=== PATIENT | female | born 1995 | race Caucasian/White ===

== ENCOUNTER 2020-12-21 10:17 | Emergency (ER) | payer OTHER ==
[~2020-12-21] VITALS: Ht 157.5 cm; Wt 56.0 kg
[~2020-12-21 10:17] MED LIST: DOCU-131 PO; IBUP-1222 PO; PREN1TAB60 PO; RANI-467 PO
[2020-12-21] MEDS ORDERED: ONDANSETRON 2MG/ML, 2ML IVPush ONE (11:00)
[2020-12-21] MEDS ORDERED: PLEASE ENTER HEIGHT AND WEIGHT MC SCH (11:00)
[2020-12-21] MEDS ORDERED: SODIUM CHLORIDE FLUSH 10ML SYR IVF ONE (11:00)
[2020-12-21] MEDS ORDERED: SODIUM CHLORIDE 0.9% 1,000ML IVBOLUS ONE (11:00)
[2020-12-21] MEDS ORDERED: ONDANSETRON 2MG/ML, 2ML ONE (11:09)
[2020-12-21 11:13] LABS: BASOPHILS % (AUTO) 1 % (0-1); EOSINOPHILS % (AUTO) 1 % (1-7); LYMPHOCYTES % (AUTO) 24 % (22-44); MEAN CORPUSCULAR HEMOGLOBIN 32.1 pg (27.0-34.8); MEAN CORPUSCULAR HGB CONC 35.3 g/dL (32.4-35.8); MEAN PLATELET VOLUME 8.1 fL (7.4-10.4); MONOCYTES % (AUTO) 7 % (2-9); NEUTROPHILS % (AUTO) 68 % (42-75); PLATELET COUNT 314 x10^3/uL (130-400); RED BLOOD COUNT 4.27 x10^6/uL (3.82-5.3); RED CELL DISTRIBUTION WIDTH 12.4 % (9.6-15.2)
[2020-12-21 11:22] LABS: MD NO
[2020-12-21 11:24] LABS: ALBUMIN 3.5 g/dL (3.4-5.0); ANION GAP 6 mmol/L (5-15); CALCIUM 9.1 mg/dL (8.5-10.1); CHLORIDE 107 mmol/L (98-107)
--- NOTE | 2020-12-21 11:26 | NUR ---
PT C/O N/V INTERMITTENTLY FOR DURATION OF , 11 WEEKS GESTATION. PT DENIES VAG BLEEDING/CRAMPING. PT STATES SHE HAS BEEN UNABLE TO TOLERATE PO FOR LAST 24 HRS. PT DENIES PAIN. PT A&O, RESPS EVEN AND UNLABORED, BP AND SPO2 MONITORS IN PLACE. CALL LIGHT IN REACH. IVF INFUSING. UA SENT TO LAB.
[2020-12-21 11:28] LABS: ALANINE AMINOTRANSFERASE 17 U/L (12-78); ALKALINE PHOSPHATASE 54 U/L (45-117); BILIRUBIN,TOTAL 0.4 mg/dL (0.2-1.0); CREATININE 0.59 mg/dL (0.55-1.02); TOTAL PROTEIN 7.5 g/dL (6.4-8.2)
[2020-12-21 11:57] LABS: MICROSCOPIC INDICATED
--- NOTE | 2020-12-21 13:13 | NUR ---
NS infused. pt up to bathroom to void, tolerating POs with no n/v. DAVID Mariee notified.
--- NOTE | 2020-12-21 13:51 | NUR ---
report given to RYAN Membreno, pt to be discharged. pt a&o, resps even and unlabored, simba.
--- NOTE | 2020-12-21 13:53 | NUR ---
PIV removed with tip intact.
[2020-12-21 13:56] VITALS: BP 117/69
== END 2020-12-21 13:58 | disposition home or self-care (01) ==
LOC: ED 11:13
DX: O21.0 Mild hyperemesis gravidarum (principal); N39.0 Urinary tract infection, site not specified; Z3A.11 11 weeks gestation of pregnancy
CPT/HCPCS: 36415; 80053; 81001; 85025; 87086; 96361; 96374; 99283; J2405; J7030

== ENCOUNTER 2021-04-03 14:07 | Outpatient (CLI) | payer SELFPAY ==
[~2021-04-03] VITALS: Ht 157.5 cm; Wt 74.5 kg
[2021-04-03 14:55] VITALS: BP 110/67
[2021-04-03 15:22] LABS: MICROSCOPIC INDICATED
[2021-04-03 15:43] LABS: AMPHETAMINE SCREEN, URINE Negative (Negative); BARBITURATE SCREEN, URINE Negative (Negative); BENZODIAZEPINE SCREEN, URINE Negative (Negative); CANNABINOID SCREEN, URINE Negative (Negative); COCAINE SCREEN, URINE Negative (Negative); METHADONE SCREEN, URINE Negative (Negative); OPIATE SCREEN, URINE Negative (Negative)
[2021-04-03] MEDS ORDERED: DIPH1TAB PO ×2 (16:24→16:25)
== END 2021-04-03 16:40 | disposition home or self-care (01) ==
LOC: LDOP 14:07
PROVIDERS: ATTEND Obstetrics & Gynecology
DX: O26.899 Other specified pregnancy related conditions, unspecified trimester (principal); R19.7 Diarrhea, unspecified; R25.2 Cramp and spasm; Z3A.00 Weeks of gestation of pregnancy not specified
CPT/HCPCS: 80307; 81001; 87086; 99211; G0463

== ENCOUNTER 2021-04-23 17:03 | Outpatient (CLI) | payer SELFPAY ==
[~2021-04-23] VITALS: Ht 157.5 cm; Wt 77.2 kg
[~2021-04-23 17:03] MED LIST changes: +DIPH1TAB PO
[2021-04-23 17:15] VITALS: BP 120/70
[2021-04-23 17:22] LABS: MICROSCOPIC INDICATED
== END 2021-04-23 18:15 | disposition home or self-care (01) ==
LOC: LDOP 17:03
PROVIDERS: ATTEND Obstetrics & Gynecology
DX: O36.8130 Decreased fetal movements, third trimester, not applicable or unspecified (principal); O26.893 Other specified pregnancy related conditions, third trimester; R19.7 Diarrhea, unspecified; Z3A.28 28 weeks gestation of pregnancy
CPT/HCPCS: 81001; 87086; 99211; G0463

== ENCOUNTER 2021-05-09 10:46 | Observation (INO) | payer SELFPAY ==
[~2021-05-09] VITALS: Ht 157.5 cm; Wt 77.2 kg
[2021-05-09 10:54] VITALS: BP 107/63
[2021-05-09 11:12] LABS: MICROSCOPIC INDICATED
[2021-05-09 11:59] LABS: BASOPHILS % (AUTO) 1 % (0-1); EOSINOPHILS % (AUTO) 1 % (1-7); LYMPHOCYTES % (AUTO) 17 % (22-44); MEAN CORPUSCULAR HEMOGLOBIN 31.4 pg (27.0-34.8); MEAN PLATELET VOLUME 8.2 fL (7.4-10.4); MONOCYTES % (AUTO) 9 % (2-9); NEUTROPHILS % (AUTO) 73 % (42-75); PLATELET COUNT 275 x10^3/uL (130-400); RED BLOOD COUNT 4.25 x10^6/uL (3.82-5.3); RED CELL DISTRIBUTION WIDTH 12.7 % (9.6-15.2)
[2021-05-09 12:06] LABS: ALBUMIN 2.8 g/dL (3.4-5.0); ANION GAP 7 mmol/L (5-15); CALCIUM 9.5 mg/dL (8.5-10.1); CHLORIDE 108 mmol/L (98-107)
[2021-05-09 12:14] LABS: ALANINE AMINOTRANSFERASE 22 U/L (12-78); ALKALINE PHOSPHATASE 85 U/L (45-117); BILIRUBIN,TOTAL 0.2 mg/dL (0.2-1.0); CREATININE 0.51 mg/dL (0.55-1.02); TOTAL PROTEIN 7.7 g/dL (6.4-8.2)
[2021-05-09] MEDS ORDERED: ONDANSETRON 2MG/ML, 2ML IVPush ONE (12:30)
[2021-05-09] MEDS ORDERED: LACTATED RINGERS 1,000 ML IV SCH (13:00)
[2021-05-09] MEDS ORDERED: LACTATED RINGERS 1,000 ML IVBOLUS ONE (13:00)
[2021-05-10 11:48] LABS: CLOSTRIDIUM DIFFICILE ANTIGEN NEGATIVE; CLOSTRIDIUM DIFFICILE TOXIN NEGATIVE (Negative); CRYPTOSPORIDIUM ANTIGEN Negative (Negative)
== END 2021-05-09 14:50 | disposition home or self-care (01) ==
LOC: LDOP 10:46 → LDIP 11:50 → LDOP 11:57 → LDIP 11:57
PROVIDERS: ADMIT Obstetrics & Gynecology; ATTEND Obstetrics & Gynecology
DX: O26.893 Other specified pregnancy related conditions, third trimester (principal); R19.7 Diarrhea, unspecified; Z3A.30 30 weeks gestation of pregnancy; Z79.899 Other long term (current) drug therapy
CPT/HCPCS: 36415; 59025; 80053; 81001; 85025; 86140; 87046; 87086; 87324; 87328; 87329; 87427; 89060; 96361; 96374; G0378; J2405; J7120; 96360; Q0114

== ENCOUNTER 2021-06-02 13:54 | Outpatient (CLI) | payer SELFPAY ==
[~2021-06-02] VITALS: Ht 157.5 cm; Wt 82.3 kg
[2021-06-02 14:18] VITALS: BP 127/80
[2021-06-02 14:33] LABS: MICROSCOPIC AUTO
== END 2021-06-02 23:59 | disposition home or self-care (01) ==
LOC: LDOP 13:54
PROVIDERS: ATTEND Obstetrics & Gynecology
DX: O26.893 Other specified pregnancy related conditions, third trimester (principal); R10.9 Unspecified abdominal pain; Z3A.34 34 weeks gestation of pregnancy
CPT/HCPCS: 59025; 81001; 87086

== ENCOUNTER 2021-06-12 13:18 | Outpatient (CLI) | payer SELFPAY ==
[~2021-06-12] VITALS: Ht 157.5 cm; Wt 81.8 kg
[2021-06-12 13:25] VITALS: BP 120/81
== END 2021-06-12 14:40 | disposition home or self-care (01) ==
LOC: LDOP 13:18
PROVIDERS: ATTEND Obstetrics & Gynecology
DX: O42.913 Preterm premature rupture of membranes, unspecified as to length of time between rupture and onset of labor, third trimester (principal); Z3A.35 35 weeks gestation of pregnancy
CPT/HCPCS: 59025; 84112; 89060; Q0114

== ENCOUNTER 2021-06-14 11:23 | Outpatient (CLI) | payer SELFPAY ==
[2021-06-14 11:59] LABS: MICROSCOPIC AUTO
== END 2021-06-14 13:30 | disposition home or self-care (01) ==
LOC: LDOP 11:23
PROVIDERS: ATTEND Obstetrics & Gynecology
DX: O26.893 Other specified pregnancy related conditions, third trimester (principal); R10.9 Unspecified abdominal pain; Z3A.35 35 weeks gestation of pregnancy
CPT/HCPCS: 59025; 81001; 87086

== ENCOUNTER 2021-06-14 18:02 | Outpatient (CLI) | payer SELFPAY ==
[~2021-06-14] VITALS: Ht 157.5 cm; Wt 81.8 kg
[2021-06-14 18:14] VITALS: BP 119/74
== END 2021-06-14 20:15 | disposition home or self-care (01) ==
LOC: LDOP 18:02
PROVIDERS: ATTEND Obstetrics & Gynecology
DX: O26.893 Other specified pregnancy related conditions, third trimester (principal); R10.9 Unspecified abdominal pain; Z3A.35 35 weeks gestation of pregnancy
CPT/HCPCS: 59025

== ENCOUNTER 2021-06-30 13:28 | Outpatient (CLI) | payer SELFPAY ==
[~2021-06-30] VITALS: Ht 160 cm; Wt 84.1 kg
[2021-06-30 14:29] VITALS: BP 125/78
== END 2021-06-30 14:40 | disposition home or self-care (01) ==
LOC: LDOP 13:28
PROVIDERS: ATTEND Obstetrics & Gynecology
DX: O26.893 Other specified pregnancy related conditions, third trimester (principal); R10.9 Unspecified abdominal pain; Z3A.38 38 weeks gestation of pregnancy
CPT/HCPCS: 59025

== ENCOUNTER 2021-07-08 08:51 | Inpatient (IN) | payer SELFPAY ==
[~2021-07-08] VITALS: Ht 157.5 cm; Wt 85.0 kg
[2021-07-08] MEDS ORDERED: CALCIUM CARBONATE 500 MG TAB.CHEW ONE (09:18)
[2021-07-08] MEDS ORDERED: NEWBORN KIT ONE (09:18)
[2021-07-08] MEDS ORDERED: OXYTOCIN 30U/ 0.9% NaCL 500ML 500 ML ONE (09:19)
[2021-07-08] MEDS ORDERED: FENTANYL PF 100 MCG/2ML IVPush PRN (09:30)
[2021-07-08] MEDS ORDERED: PLEASE ENTER HEIGHT AND WEIGHT MC SCH (09:30)
[2021-07-08] MEDS ORDERED: OXYTOCIN 30U/ 0.9% NaCL 500ML 500 ML IV ONE (09:30)
[2021-07-08] MEDS ORDERED: D5%-LACTATED RINGERS 1,000 ML IV SCH (09:30)
[2021-07-08] MEDS ORDERED: CALCIUM CARBONATE 500 MG TAB.CHEW PO PRN ×3 (09:30→19:00)
[2021-07-08] MEDS ORDERED: FENTANYL PF 100 MCG/2ML IV PRN (09:30)
[2021-07-08] MEDS ORDERED: OXYTOCIN 30U/ 0.9% NaCL 500ML 500 ML IV PRN (09:30)
[2021-07-08] MEDS ORDERED: TERBUTALINE 1 MG/ML, 1ML IVPush PRN (09:30)
[2021-07-08] MEDS ORDERED: ONDANSETRON 2MG/ML, 2ML IVPush PRN ×2 (09:30→13:30)
[2021-07-08] MEDS ORDERED: LACTATED RINGERS 1,000 ML IV SCH ×4 (09:30→13:30)
[2021-07-08] MEDS ORDERED: TERBUTALINE 1 MG/ML, 1ML SQ PRN (09:30)
[2021-07-08 09:45] LABS: BASOPHILS % (AUTO) 0 % (0-1); EOSINOPHILS % (AUTO) 1 % (1-7); LYMPHOCYTES % (AUTO) 18 % (22-44); MEAN CORPUSCULAR HEMOGLOBIN 28.6 pg (27.0-34.8); MEAN CORPUSCULAR HGB CONC 33.5 g/dL (32.4-35.8); MEAN PLATELET VOLUME 7.7 fL (7.4-10.4); MONOCYTES % (AUTO) 10 % (2-9); NEUTROPHILS % (AUTO) 71 % (42-75); PLATELET COUNT 324 x10^3/uL (130-400); RED BLOOD COUNT 4.15 x10^6/uL (3.82-5.3); RED CELL DISTRIBUTION WIDTH 14.4 % (9.6-15.2)
[2021-07-08 11:47] VITALS: BP 116/77
[2021-07-08] MEDS ORDERED: FAMO10TA31 PO (12:04)
[2021-07-08] MEDS ORDERED: MISOPROSTOL 200 MCG TABLET PR PRN ×2 (12:30→19:00)
[2021-07-08] MEDS ORDERED: ACETAMINOPHEN 325 MG TABLET PO SCH (12:30)
[2021-07-08] MEDS ORDERED: ONDANSETRON 2MG/ML, 2ML IV PRN ×2 (12:30→19:00)
[2021-07-08] MEDS ORDERED: MORPHINE SULFATE 4 MG/ML, 1ML IVPush PRN (12:30)
[2021-07-08] MEDS ORDERED: SIMETHICONE 80 MG CHEW TAB PO PRN ×2 (12:30→19:00)
[2021-07-08] MEDS ORDERED: OXYTOCIN 30U/ 0.9% NaCL 500ML 500 ML IV SCH (12:30)
[2021-07-08] MEDS ORDERED: OXYcodone IR 5MG TABLET PO PRN ×2 (12:30)
[2021-07-08] MEDS ORDERED: KETOROLAC 30 MG/1 ML IV SCH (12:30)
[2021-07-08] MEDS ORDERED: DOCUSATE 100 MG CAPSULE PO PRN ×2 (12:30→19:00)
[2021-07-08] MEDS ORDERED: BISACODYL 10 MG SUPP PR PRN ×2 (12:30→19:00)
[2021-07-08] MEDS ORDERED: morphine SULFATE 10 MG/ML, 1ML IM PRN (12:30)
[2021-07-08] MEDS ORDERED: BUPIVACAINE 0.25% ONE (13:14)
[2021-07-08] MEDS ORDERED: FAMOTIDINE 20 MG TABLET ONE (13:20)
[2021-07-08] MEDS: FAMOTIDINE 20 MG TABLET PO SCH (13:25)
[2021-07-08] MEDS ORDERED: FENTANYL/BUPIV./NS/PF 250 ML EPIDCONT SCH ×2 (13:30)
[2021-07-08] MEDS: LACTATED RINGERS 1,000 ML IV SCH ×2 (13:30→21:30)
[2021-07-08] MEDS ORDERED: NALOXONE 0.4 MG/ML, 1ML IVPush PRN (13:30)
[2021-07-08] MEDS ORDERED: LACTATED RINGERS 1,000 ML IVBOLUS PRN ×2 (13:30)
[2021-07-08] MEDS ORDERED: EPHEDRINE 50 MG/ML, 1ML IVPush PRN ×2 (13:30)
[2021-07-08] MEDS ORDERED: DIPHENHYDRAMINE 50 MG/ML, 1ML IVPush PRN (13:30)
[2021-07-08] MEDS ORDERED: HYDROcodone/APAP 5/325 TABLET PO PRN ×2 (19:00)
[2021-07-08] MEDS ORDERED: ACETAMINOPHEN 325 MG TABLET PO PRN ×2 (19:00)
[2021-07-08] MEDS: OXYTOCIN 30U/ 0.9% NaCL 500ML 500 ML IV SCH ×5 (19:00→23:18)
[2021-07-08 21:35] VITALS: BP 112/72
[2021-07-09 00:15] VITALS: BP 113/73
[2021-07-09] MEDS: OXYTOCIN 30U/ 0.9% NaCL 500ML 500 ML IV SCH ×6 (00:44→15:00)
[2021-07-09] MEDS: IBUPROFEN 600 MG TABLET PO PRN ×2 (00:47→10:40)
[2021-07-09 03:29] LABS: BASOPHILS % (AUTO) 0 % (0-1); EOSINOPHILS % (AUTO) 0 % (1-7); LYMPHOCYTES % (AUTO) 19 % (22-44); MEAN CORPUSCULAR HEMOGLOBIN 28.8 pg (27.0-34.8); MEAN CORPUSCULAR HGB CONC 33.5 g/dL (32.4-35.8); MEAN PLATELET VOLUME 7.9 fL (7.4-10.4); MONOCYTES % (AUTO) 10 % (2-9); NEUTROPHILS % (AUTO) 70 % (42-75); PLATELET COUNT 314 x10^3/uL (130-400); RED BLOOD COUNT 4.37 x10^6/uL (3.82-5.3)
[2021-07-09 04:15] VITALS: BP 114/74
[2021-07-09] MEDS: LACTATED RINGERS 1,000 ML IV SCH (04:34)
[2021-07-09 07:40] VITALS: BP 107/68
[2021-07-09] MEDS ORDERED: PRENATAL VIT/IRON/FA 1 EACH TABLET PO SCH ×2 (09:00)
[2021-07-09] MEDS: FAMOTIDINE 20 MG TABLET PO SCH (09:37)
[2021-07-09 12:10] VITALS: BP 113/80
[2021-07-09] MEDS ORDERED: IBUPROFEN 600 MG TABLET PO SCH (12:30)
[2021-07-09] MEDS ORDERED: SERT20OR5 PO (13:30)
[2021-07-09] MEDS ORDERED: IBUP-1222 PO (13:30)
[2021-07-09 16:27] VITALS: BP 107/67
== END 2021-07-09 19:00 | disposition home or self-care (01) | DRG 806 ==
LOC: LDIP 08:51 → 2NW 21:05
PROVIDERS: ADMIT Obstetrics & Gynecology; ATTEND Obstetrics & Gynecology
PROC: 10D07Z6 Extraction of Products of Conception, Vacuum, Via Natural or Artificial Opening (ICD-10-PCS; principal; 2021-07-08)
PROC: 10907ZC Drainage of Amniotic Fluid, Therapeutic from Products of Conception, Via Natural or Artificial Opening (ICD-10-PCS; 2021-07-08)
PROC: 3E033VJ Introduction of Other Hormone into Peripheral Vein, Percutaneous Approach (ICD-10-PCS; 2021-07-08)
PROC: 10H07YZ Insertion of Other Device into Products of Conception, Via Natural or Artificial Opening (ICD-10-PCS; 2021-07-08)
PROC: 3E0R3BZ Introduction of Anesthetic Agent into Spinal Canal, Percutaneous Approach (ICD-10-PCS; 2021-07-08)
PROC: 00HU33Z Insertion of Infusion Device into Spinal Canal, Percutaneous Approach (ICD-10-PCS; 2021-07-08)
PROC: 10H073Z Insertion of Monitoring Electrode into Products of Conception, Via Natural or Artificial Opening (ICD-10-PCS; 2021-07-08)
PROC: 4A1H74Z Monitoring of Products of Conception, Cardiac Electrical Activity, Via Natural or Artificial Opening (ICD-10-PCS; 2021-07-08)
DX: O69.81X0 Labor and delivery complicated by cord around neck, without compression, not applicable or unspecified (principal); O99.354 Diseases of the nervous system complicating childbirth; Z37.0 Single live birth; O76 Abnormality in fetal heart rate and rhythm complicating labor and delivery; O99.344 Other mental disorders complicating childbirth; O66.0 Obstructed labor due to shoulder dystocia; F32.9 Major depressive disorder, single episode, unspecified; Z20.822 Contact with and (suspected) exposure to COVID-19; G43.909 Migraine, unspecified, not intractable, without status migrainosus; Z3A.39 39 weeks gestation of pregnancy; Z82.49 Family history of ischemic heart disease and other diseases of the circulatory system; Z91.030 Bee allergy status
CPT/HCPCS: 36415; 85025; 86592; 86850; 86900; 87635; G0378; J2590; J3010; J7120